=== PATIENT | female | born 1985 | race Caucasian/White ===

== ENCOUNTER → 2016-07-09 | Outpatient (CLI) | payer MEDICAID | LOC: RAD 13:32 | PROVIDERS: ATTEND Family Medicine | DX: M25.511 Pain in right shoulder (principal) ==

== ENCOUNTER → 2016-08-01 | Outpatient (CLI) | payer MEDICAID ==
[2016-08-01 12:43] LABS: ABSOLUTE BASOPHILS # (AUTO) 0.1 10^3/uL (0.0-0.2); ABSOLUTE EOSINOPHILS # (AUTO) 0.6 10^3/uL (0.0-0.6); ABSOLUTE LYMPHOCYTES (AUTO) 3.7 10^3/uL (0.5-4.7); ABSOLUTE MONOCYTES (AUTO) 0.7 10^3/uL (0.1-1.4); BASOPHILS % (AUTO) 0.6 % (0-2); EOSINOPHILS % (AUTO) 6.5 % (0-6); HEMATOCRIT 44.1 % (36.0-47.0); HEMOGLOBIN 14.6 g/dL (12.0-15.5); HGB HCT DIFFERENCE -0.3; LYMPHOCYTES % (AUTO) 40.7 % (13-45); MEAN CORPUSCULAR HEMOGLOBIN 30.3 pg (27.0-33.4); MEAN CORPUSCULAR HGB CONC 33.2 g/dL (32.0-36.0); MEAN CORPUSCULAR VOLUME 91 fl (80-97); MONOCYTES % (AUTO) 7.8 % (3-13); RED BLOOD COUNT 4.83 10^6/uL (3.72-5.28); SEGMENTED NEUTROPHILS % (AUTO) 44.4 % (42-78)
[2016-08-01 13:17] LABS: ERYTHROCYTE SEDIMENTATION RATE 9 mm/hr (0-20)
[2016-08-03 08:52] LABS: CYCLIC CITRUL PEPTIDE IGG/A AB 6 units (0-19)
== END ==
LOC: OD 11:08
PROVIDERS: ATTEND Family Medicine
DX: M25.511 Pain in right shoulder (principal)
CPT/HCPCS: 36415; 85025; 85652; 86038; 86140; 86200; 86430; 86812

== ENCOUNTER 2016-09-05 11:18 | Emergency (ER) | payer MEDICAID ==
--- NOTE | 2016-09-05 11:24 | ER Document Report ---
ED Medical Screen (RME) - General Stated Complaint: TOOTH PAIN Notes: 30 yo female c/o right lower dental pain x 3 days. unable to see dentist until next week. no fever TRAVEL OUTSIDE OF THE [place] IN LAST 30 DAYS: No - Related Data Allergies/Adverse Reactions: Sulfa (Sulfonamide Antibiotics) Allergy (Severe, Verified 05/13/16 16:22) hives, can't breathe hydrocodone bitartrate [From Vicodin] Adverse Reaction (Mild, Verified 05/13/16 16:22) VOMITING Past Medical History - Social History Family history: Reviewed & Not Pertinent Pulmonary Medical History: Reports: Hx Asthma Neurological Medical History: Reports: Hx Migraine, Hx Seizures - x1 grandmal 4 yrs ago R/T migraine meds combo Renal/ Medical History: Reports: Hx Ovarian Cysts Malignancy Medical History: Reports: Hx Cervical Cancer Musculoskeltal Medical History: Denies Hx Arthritis, Reports Hx Musculoskeletal Trauma Skin Medical History: Reports Hx Cellulitis, Reports Hx MRSA Traumatic Medical History: Reports: Hx Fractures - left arm and left foot Infectious Medical History: Reports: Hx MRSA Past Surgical History: Reports: Hx Gynecologic Surgery - cone biopsy,2008, Hx Oral Surgery, Hx Tubal Ligation - Immunizations Immunizations up to date: Yes Hx Diphtheria, Pertussis, Tetanus Vaccination: Yes - 03/31/13 Physical Exam - Vital signs Vitals: Temp Pulse Resp BP Pulse Ox 97.7 F 84 16 129/83 H 100 09/05/16 11:22 09/05/16 11:22 09/05/16 11:22 09/05/16 11:22 09/05/16 11:22 Course - Vital Signs Vital signs: Temp Pulse Resp BP Pulse Ox 97.7 F 84 16 129/83 H 100 09/05/16 11:22 09/05/16 11:22 09/05/16 11:22 09/05/16 11:22 09/05/16 11:22
--- NOTE | 2016-09-05 13:08 | ER Document Report ---
ED Oral Problem - General Chief Complaint: Toothache Stated Complaint: TOOTH PAIN Notes: Patient is complaining of pain in the lower posterior most teeth on the right for about 3 days. She says she is unable to get an appointment to see a dentist until next Saturday. No fevers. Only minimal soft tissue swelling present. TRAVEL OUTSIDE OF THE [place] IN LAST 30 DAYS: No - Related Data Allergies/Adverse Reactions: Sulfa (Sulfonamide Antibiotics) Allergy (Severe, Verified 09/05/16 11:24) hives, can't breathe hydrocodone bitartrate [From Vicodin] Adverse Reaction (Mild, Verified 09/05/16 11:24) VOMITING Home Medications: Current Home Medications Eletriptan HBr [Relpax] 20 mg PO 09/05/16 [History] Past Medical History - Social History Smoking Status: Current Every Day Smoker Chew tobacco use (# tins/day): No Frequency of alcohol use: None Drug Abuse: None Family History: Arthritis, CAD, CVA, Hyperlipidemia, Hypertension, Malignancy Patient has suicidal ideation: No Patient has homicidal ideation: No Pulmonary Medical History: Reports: Hx Asthma Neurological Medical History: Reports: Hx Migraine, Hx Seizures - x1 grandmal 4 yrs ago R/T migraine meds combo Renal/ Medical History: Reports: Hx Ovarian Cysts. Denies: Hx Peritoneal Dialysis Malignancy Medical History: Reports: Hx Cervical Cancer Musculoskeltal Medical History: Denies Hx Arthritis, Reports Hx Musculoskeletal Trauma Skin Medical History: Reports Hx Cellulitis, Reports Hx MRSA Traumatic Medical History: Reports: Hx Fractures - left arm and left foot Infectious Medical History: Reports: Hx MRSA Past Surgical History: Reports: Hx Gynecologic Surgery - cone biopsy,2008, Hx Oral Surgery, Hx Tubal Ligation - Immunizations Immunizations up to date: Yes Hx Diphtheria, Pertussis, Tetanus Vaccination: Yes - 03/31/13 Hx Pneumococcal Vaccination: 03/01/13 Review of Systems - Review of Systems Constitutional: denies: Fever EENT: Mouth pain, Dental problem. denies: Throat pain, Difficulty swallowing, Throat swelling, Mouth swelling Physical Exam - Vital signs Vitals: Temp Pulse Resp BP Pulse Ox 97.7 F 84 16 129/83 H 100 09/05/16 11:22 09/05/16 11:22 09/05/16 11:22 09/05/16 11:22 09/05/16 11:22 Interpretation: Normal - Notes Notes: PHYSICAL EXAMINATION: GENERAL: Well-appearing, in no acute distress. Vital signs are normal. Afebrile. HEAD: Atraumatic, normocephalic. EYES: Pupils equal round and reactive to light, extraocular movements intact. ENT: oropharynx clear without exudates. Moist mucous membranes. Patient appears to have an impacted posterior wisdom tooth on the right lower jaw. The adjacent gingiva is soft and tender without any fluctuance present. NECK: Normal range of motion, supple. Course - Vital Signs Vital signs: Temp Pulse Resp BP Pulse Ox 97.8 F 73 18 119/89 H 99 09/05/16 13:13 09/05/16 13:13 09/05/16 13:13 09/05/16 13:13 09/05/16 13:13 Discharge - Discharge Clinical Impression: Chronic dental pain, Impacted tooth Condition: Stable Disposition: HOME, SELF-CARE Additional Instructions: TOOTHACHE: Your pain is due to dental decay. The tooth must be repaired in order for you to feel better. You will, therefore, be referred to a dentist. We do not have dentists on the staff at [facility]. Severe swelling or drainage around a tooth usually means a dental abscess. This also requires evaluation and treatment by the dentist, but antibiotics may be prescribed while awaiting dental treatment. You should be rechecked immediately if you develop major swelling of the face, increasing pain, a lump in the jaw or gums, headache, difficulty swallowing, or fever. It appears that you have an impacted wisdom tooth. ORAL NARCOTIC MEDICATION: You have been given a prescription for pain control. This medication is a narcotic. It's best taken with food, as nausea can result if taken on an empty stomach. Don't operate machinery or drive within six hours of taking this medication. Do not combine this medicine with alcohol, or with any medication which can cause sedation (such as cold tablets or sleeping pills) unless you get permission from the physician. Narcotics tend to cause constipation. If possible, drink plenty of fluids and eat a diet high in fiber and fruits. PENICILLIN V K: You have been given a prescription for Penicillin VK. Your physician has determined that this is the best antibiotic for your condition. Pen VK can be taken with meals, however more of the antibiotic gets into the bloodstream if it's taken on an empty stomach. Penicillin usually has no side effects. However, allergy to penicillins is common. If you have had an allergic reaction to any drug of the penicillin family, you should never take any other penicillin. Notify your doctor at once if you develop hives, itching, swelling, faintness, or shortness of breath. Antinausea Medication You have been given a medication to suppress nausea and vomiting. This type of medication can be given as a shot, pill, or suppository. It will usually last for many hours. Pills and shots usually last six to eight hours, suppositories last about 12 hours. For the typical illness, only one or two doses of the medication may be necessary. Mild lightheadedness may occur. This type of medicine can cause drowsiness. Do not drive or operate dangerous machinery while under its influence. Do not mix with alcohol. See your doctor at once if you have muscle spasms or tightness, or uncontrollable motions (particularly of the neck, mouth, or jaw). Persistent vomiting or severe lightheadedness should also be evaluated by the physician. FOLLOW-UP CARE: You have been referred for follow-up care to the dentists listed below. Call the dentists office for an appointment as you were instructed or within the next two days. If you experience worsening or a significant change in your symptoms, notify the physician immediately or return to the Emergency Department at any time for re-evaluation. Prescriptions: Promethazine HCl [Phenergan 25 mg Tablet] 1 - 2 tab PO Q6HP PRN #15 tablet PRN Reason: Oxycodone HCl/Acetaminophen [Percocet 5-325 mg Tablet] 1 - 2 tab PO Q4H PRN #15 tablet PRN Reason: Penicillin V Potassium [Penicillin Vk 500 mg Tablet] 500 mg PO TID #20 tablet
[2016-09-05 13:14] VITALS: BP 119/89
== END 2016-09-05 13:14 | disposition home or self-care (01) ==
LOC: ER 11:18
DX: K01.1 Impacted teeth (principal); K08.9 Disorder of teeth and supporting structures, unspecified; F17.200 Nicotine dependence, unspecified, uncomplicated; J45.909 Unspecified asthma, uncomplicated; Z86.14 Personal history of Methicillin resistant Staphylococcus aureus infection; Z88.2 Allergy status to sulfonamides; Z88.6 Allergy status to analgesic agent; Z98.51 Tubal ligation status
CPT/HCPCS: 99282

== ENCOUNTER 2016-11-05 15:46 | Emergency (ER) | payer MEDICAID ==
--- NOTE | 2016-11-05 16:04 | ER Document Report ---
ED Medical Screen (RME) - General Chief Complaint: Abdominal Pain Stated Complaint: BACK PAIN Time Seen by Provider: 11/05/16 15:59 TRAVEL OUTSIDE OF THE [place] IN LAST 30 DAYS: No - HPI Notes: 11/05/16 16:03 Right side abdominal pain onset this morning last menstrual cycle 2 weeks ago states nausea no vomiting no diarrhea no fever trauma - Related Data Allergies/Adverse Reactions: Sulfa (Sulfonamide Antibiotics) Allergy (Severe, Verified 11/05/16 15:56) hives, can't breathe hydrocodone bitartrate [From Vicodin] Adverse Reaction (Mild, Verified 11/05/16 15:56) VOMITING Past Medical History - Social History Family history: Reviewed & Not Pertinent Pulmonary Medical History: Reports: Hx Asthma Neurological Medical History: Reports: Hx Migraine, Hx Seizures - x1 grandmal 4 yrs ago R/T migraine meds combo Renal/ Medical History: Reports: Hx Ovarian Cysts. Denies: Hx Peritoneal Dialysis Malignancy Medical History: Reports: Hx Cervical Cancer Musculoskeltal Medical History: Denies Hx Arthritis, Reports Hx Musculoskeletal Trauma Skin Medical History: Reports Hx Cellulitis, Reports Hx MRSA Traumatic Medical History: Reports: Hx Fractures - left arm and left foot Infectious Medical History: Reports: Hx MRSA Past Surgical History: Reports: Hx Gynecologic Surgery - cone biopsy,2008, Hx Oral Surgery, Hx Tubal Ligation - Immunizations Immunizations up to date: Yes Hx Diphtheria, Pertussis, Tetanus Vaccination: Yes - 03/31/13 Review of Systems - Review of Systems Gastrointestinal: Abdominal pain Physical Exam - Vital signs Vitals: Temp Pulse Resp BP Pulse Ox 98.5 F 113 H 16 134/87 H 99 11/05/16 15:57 11/05/16 15:57 11/05/16 15:57 11/05/16 15:57 11/05/16 15:57 - Cardiovascular Rhythm: Regular Heart sounds: Normal auscultation Course - Re-evaluation Re-evalutation: 11/05/16 16:04 I have greeted and performed a rapid initial assessment of this patient. A comprehensive ED assessment and evaluation of the patient, analysis of test results and completion of the medical decision making process will be conducted by additional ED providers. - Vital Signs Vital signs: Temp Pulse Resp BP Pulse Ox 98.5 F 113 H 16 134/87 H 99 11/05/16 15:57 11/05/16 15:57 11/05/16 15:57 11/05/16 15:57 11/05/16 15:57
[2016-11-05 16:17] LABS: ABSOLUTE BASOPHILS # (AUTO) 0.1 10^3/uL (0.0-0.2); ABSOLUTE EOSINOPHILS # (AUTO) 0.2 10^3/uL (0.0-0.6); ABSOLUTE LYMPHOCYTES (AUTO) 3.2 10^3/uL (0.5-4.7); ABSOLUTE MONOCYTES (AUTO) 1.1 10^3/uL (0.1-1.4); BASOPHILS % (AUTO) 0.8 % (0-2); EOSINOPHILS % (AUTO) 1.1 % (0-6); HEMATOCRIT 42.9 % (36.0-47.0); HEMOGLOBIN 14.5 g/dL (12.0-15.5); HGB HCT DIFFERENCE 0.6; LYMPHOCYTES % (AUTO) 21.9 % (13-45); MEAN CORPUSCULAR HEMOGLOBIN 30.4 pg (27.0-33.4); MEAN CORPUSCULAR HGB CONC 33.7 g/dL (32.0-36.0); MEAN CORPUSCULAR VOLUME 90 fl (80-97); MONOCYTES % (AUTO) 7.8 % (3-13); RED BLOOD COUNT 4.76 10^6/uL (3.72-5.28); RED CELL DISTRIBUTION WIDTH 13.5 % (11.5-14.0); SEGMENTED NEUTROPHILS % (AUTO) 68.4 % (42-78); WHITE BLOOD COUNT 14.6 10^3/uL (4.0-10.5)
[2016-11-05 16:25] LABS: APPEARANCE,URINE CLOUDY; BILIRUBIN,URINE NEGATIVE (NEGATIVE); GLUCOSE, URINE NEGATIVE (NEGATIVE); KETONES,URINE NEGATIVE (NEGATIVE); LEUKOCYTE ESTERASE,URINE LARGE (NEGATIVE); NITRITE,URINE POSITIVE (NEGATIVE); PROTEIN,URINE 100 mg/dL (NEGATIVE); URINE SPECIFIC GRAVITY 1.014; UROBILINOGEN,URINE NEGATIVE mg/dL (<2.0)
[2016-11-05] MEDS ORDERED: CEFTRIAXONE 1 GM/D5W RTU 50 ML IV ONE (16:39)
[2016-11-05 16:43] LABS: ALANINE AMINOTRANSFERASE 25 U/L (9-52); ALBUMIN 4.2 g/dL (3.5-5.0); ALKALINE PHOSPHATASE 76 U/L (38-126); ANION GAP 11 (5-19); ASPARTATE AMINO TRANSFERASE 16 U/L (14-36); BILIRUBIN,DIRECT 0.3 mg/dL (0.0-0.4); BILIRUBIN,TOTAL 0.5 mg/dL (0.2-1.3); BLOOD UREA NITROGEN 8 mg/dL (7-20); CALCIUM 9.9 mg/dL (8.4-10.2); CARBON DIOXIDE 26 mmol/L (22-30); CHLORIDE 107 mmol/L (98-107); CREATININE RESULT 0.73 mg/dL (0.52-1.25); GLUCOSE 94 mg/dL (75-110); LIPASE 89.5 U/L (23-300); POTASSIUM 3.9 mmol/L (3.6-5.0); SODIUM 144.3 mmol/L (137-145)
[2016-11-05 16:49] LABS: URINE BARBITURATES SCREEN NEGATIVE; URINE METHADONE SCREEN NEGATIVE; URINE OPIATES LOW NEGATIVE; URINE PHENCYCLIDINE SCREEN NEGATIVE
[2016-11-05] MEDS ORDERED: MORPHINE SULFATE 10 MG/ML INJ IV PRN (17:08)
[2016-11-05] MEDS ORDERED: ONDANSETRON HCL INJ/PF 4 MG/2 ML SDV IV ONE (17:08)
[2016-11-05] MEDS: NORMAL SALINE 1000 ML 1,000 ML IV PRN ×2 (18:04→19:00)
[2016-11-05] MEDS ORDERED: HYDROMORPHONE HCL INJ/PF 2 MG/ML AMPULE IV ONE ×2 (18:52→20:39)
[2016-11-05] MEDS ORDERED: KETOROLAC TROMETHAMINE INJ/PF 30 MG/1 ML SDV IV ONE (18:52)
[2016-11-05] MEDS ORDERED: TAMSULOSIN HCL 0.4 MG CAP.SR.24H PO ONE (18:52)
--- NOTE | 2016-11-05 18:57 | ER Document Report ---
ED General - General Chief Complaint: Abdominal Pain Stated Complaint: BACK PAIN Time Seen by Provider: 11/05/16 15:59 Mode of Arrival: Ambulatory Information source: Patient Notes: This is a 30-year-old female that presents to the emergency room with right flank and lower abdominal pain for one day. Patient denies fever, chills. She has had nausea without vomiting. She denies vaginal discharge. The patient denies diarrhea. TRAVEL OUTSIDE OF THE [place] IN LAST 30 DAYS: No - HPI Onset: Yesterday Onset/Duration: Gradual Quality of pain: Dull, Sharp Severity: Moderate Pain Level: 4 Associated symptoms: Nausea. denies: Chills, Diarrhea, Fever, Vomiting Exacerbated by: Denies Relieved by: Denies Similar symptoms previously: No Recently seen / treated by doctor: No - Related Data Allergies/Adverse Reactions: Sulfa (Sulfonamide Antibiotics) Allergy (Severe, Verified 11/05/16 15:56) hives, can't breathe hydrocodone bitartrate [From Vicodin] Adverse Reaction (Mild, Verified 11/05/16 15:56) VOMITING Past Medical History - General Information source: Patient - Social History Smoking Status: Never Smoker Cigarette use (# per day): No Chew tobacco use (# tins/day): No Frequency of alcohol use: None Drug Abuse: None Lives with: Family Family History: Arthritis, CAD, CVA, Hyperlipidemia, Hypertension, Malignancy Patient has suicidal ideation: No Patient has homicidal ideation: No Pulmonary Medical History: Reports: Hx Asthma Neurological Medical History: Reports: Hx Migraine, Hx Seizures - x1 grandmal 4 yrs ago R/T migraine meds combo Renal/ Medical History: Reports: Hx Ovarian Cysts. Denies: Hx Peritoneal Dialysis Malignancy Medical History: Reports: Hx Cervical Cancer Musculoskeltal Medical History: Denies Hx Arthritis, Reports Hx Musculoskeletal Trauma Skin Medical History: Reports Hx Cellulitis, Reports Hx MRSA Traumatic Medical History: Reports: Hx Fractures - left arm and left foot Infectious Medical History: Reports: Hx MRSA Past Surgical History: Reports: Hx Gynecologic Surgery - cone biopsy,2008, Hx Oral Surgery, Hx Tubal Ligation - Immunizations Immunizations up to date: Yes Hx Diphtheria, Pertussis, Tetanus Vaccination: Yes - 03/31/13 Hx Pneumococcal Vaccination: 03/01/13 Review of Systems - Review of Systems Constitutional: denies: Chills, Fever EENT: No symptoms reported Cardiovascular: No symptoms reported Respiratory: No symptoms reported Gastrointestinal: See HPI Genitourinary: No symptoms reported Female Genitourinary: No symptoms reported Musculoskeletal: No symptoms reported Skin: No symptoms reported Hematologic/Lymphatic: No symptoms reported Neurological/Psychological: No symptoms reported Physical Exam - Vital signs Vitals: Temp Pulse Resp BP Pulse Ox 98.5 F 113 H 16 134/87 H 99 11/05/16 15:57 11/05/16 15:57 11/05/16 15:57 11/05/16 15:57 11/05/16 15:57 Notes: Physical exam: GENERAL: 30-year-old female, alert and oriented 3, appears in distress HEAD: Atraumatic, normocephalic. EYES: Pupils equal round and reactive to light, extraocular movements intact, sclera anicteric, conjunctiva are normal. ENT: TMs normal, nares patent, oropharynx clear without exudates. Moist mucous membranes. NECK: Normal range of motion, supple without lymphadenopathy or JVD. LUNGS: Breath sounds clear to auscultation bilaterally and equal. No wheezes rales or rhonchi. HEART: Regular rate and rhythm without murmurs, rubs or gallops. ABDOMEN: Soft, normoactive bowel sounds. The patient does have right CVA tenderness and right flank tenderness and right lower quadrant tenderness. No guarding, no rebound. The patient has no tenderness in the lower suprapubic area. No masses appreciated. EXTREMITIES: Normal range of motion, no pitting or edema. No clubbing or cyanosis. NEUROLOGICAL: Cranial nerves II through XII grossly intact. Normal speech, normal gait. PSYCH: Normal mood, normal affect. SKIN: Warm, Dry, normal turgor, no rashes or lesions noted. Course - Re-evaluation Re-evalutation: 11/05/16 18:55 Patient treated with IV fluids, IV morphine, IV Dilaudid, IV Zofran, IV ceftriaxone and oral Flomax. CT of the abdomen reveals a 3 mm stone at the distal UVJ on the right. Patient was given ceftriaxone 2 g IV. 11/05/16 18:56 11/05/16 20:38 Note: I discussed case with Dr. Humphries who recommended patient be transferred to [place] for IV antibiotics and consultation with urology in the morning. I discussed this with the patient and she said it's not possible at this time because she has a special needs child and has to make arrangements. She states she lives 20 minutes from [place] and is willing to go to the emergency room. I did call the emergency room doctor at [place] and explained the situation and gave her heads-up call that the patient may be arriving. I've given the patient a copy of the CT on a CD disc as well as the official CT report, labs and urine analysis. - Vital Signs Vital signs: Temp Pulse Resp BP Pulse Ox 98.5 F 113 H 16 134/87 H 99 11/05/16 15:57 11/05/16 15:57 11/05/16 15:57 11/05/16 15:57 11/05/16 15:57 - Laboratory Result Diagrams: 11/05/16 16:05 11/05/16 16:05 Laboratory results interpreted by me: 11/05/16 11/05/16 11/05/16 16:05 16:05 19:47 WBC 14.6 H Absolute Neutrophils 10.0 H Urine Protein 100 H 30 H Urine Blood LARGE H LARGE H Urine Nitrite POSITIVE H Ur Leukocyte Esterase LARGE H MODERATE H - Diagnostic Test Radiology reviewed: Image reviewed, Reports reviewed - Mild hydronephrosis with right UVJ stone. Discharge - Discharge Clinical Impression: 3 mm left distal ureter stone Urinary tract infection Qualifiers: Urinary tract infection type: acute cystitis Hematuria presence: with hematuria Qualified Code(s): N30.01 - Acute cystitis with hematuria Condition: Stable Disposition: HOME, SELF-CARE Additional Instructions: In the emergency room: CT showed a 3 mm distal left ureter stone The catheter urine showed white cells, red cells and bacteria in the urine You received 2 g of IV ceftriaxone, 2 L of IV fluid, IV morphine, IV Dilaudid, oral Flomax. I discussed the case with Dr. Humphries who is the urologist at [place] and he recommended transfer to [place] for IV fluids and his evaluation in the morning. If going to [place] tonight: Bring a CD copy of your CT with the official report of the study. Bring a copy of the blood tests and the urine tests. A urine culture was sent in vault be available for 2 days I have spoken to the ER doctor and gave her a heads-up call that you may be showing up in the ER. Otherwise, he can always return to the emergency room here if you have any problems: Excessive vomiting, worsening pain or any concerns he getting worse. Prescriptions: Cefixime [Suprax] 400 mg PO DAILY #10 capsule Oxycodone HCl/Acetaminophen [Percocet 5-325 mg Tablet] 1 - 2 tab PO ASDIR PRN # 25 tablet PRN Reason: Tamsulosin HCl [Flomax 0.4 mg Cap.sr] 0.4 mg PO DAILY #7 cap.sr.24h Referrals: FAITH SOLORZANO DO [Primary Care Provider] - Follow up as needed
[2016-11-05 20:00] LABS: AMORPHOUS SEDIMENT,URINE TRACE /HPF; APPEARANCE,URINE SLIGHTLY-CLOUDY; BILIRUBIN,URINE NEGATIVE (NEGATIVE); GLUCOSE, URINE NEGATIVE (NEGATIVE); KETONES,URINE NEGATIVE (NEGATIVE); LEUKOCYTE ESTERASE,URINE MODERATE (NEGATIVE); NITRITE,URINE NEGATIVE (NEGATIVE); PROTEIN,URINE 30 mg/dL (NEGATIVE); URINE SPECIFIC GRAVITY 1.009; UROBILINOGEN,URINE NEGATIVE mg/dL (<2.0)
[2016-11-05] MEDS ORDERED: ONDANSETRON ODT 4 MG TAB (6 TAB/DSPK) PO PRN (20:40)
[2016-11-05 21:30] VITALS: BP 119/78
== END 2016-11-05 21:28 | disposition home or self-care (01) ==
LOC: ER 15:46
DX: N13.2 Hydronephrosis with renal and ureteral calculous obstruction (principal); N30.01 Acute cystitis with hematuria; J45.909 Unspecified asthma, uncomplicated; Z88.2 Allergy status to sulfonamides; Z85.41 Personal history of malignant neoplasm of cervix uteri; Z86.14 Personal history of Methicillin resistant Staphylococcus aureus infection
CPT/HCPCS: 96376; 99284; 96361; 51701; 96375; 96365; 36415; 87086; 84702; 83690; 85025; 80053; 81001; 80307; 76380; J1885; J2270; J1170; J3490; J2405; J7030; J0696

== ENCOUNTER 2016-12-10 13:27 | Emergency (ER) | payer MEDICAID ==
[2016-12-10 13:58] VITALS: BP 126/78
[2016-12-10] MEDS ORDERED: PENICILLIN V POTASSIUM 500 MG TABLET PO ONE (14:29)
[2016-12-10] MEDS ORDERED: IBUPROFEN 800 MG TABLET PO ONE (14:29)
[2016-12-10] MEDS ORDERED: BENZONATATE 100 MG CAPSULE PO ONE (14:30)
--- NOTE | 2016-12-10 14:36 | ER Document Report ---
ED Oral Problem - General Chief Complaint: Toothache Stated Complaint: TOOTH PAIN Time Seen by Provider: 12/10/16 14:20 Mode of Arrival: Ambulatory Information source: Patient Notes: 31-year-old female presents to ED for dental pain on tooth #19 Saturday. This is the only tooth in the bottom left jaw. Minimal swelling to the gums. States she cannot get to the dentist until Saturday. TRAVEL OUTSIDE OF THE [place] IN LAST 30 DAYS: No - HPI Patient complains to provider of: Toothache Onset: Other Onset: Gradual Quality of pain: Throbbing Severity: Severe Pain Level: 5 Associated symptoms: Toothache Worsened by: Cold Relieved by: Nothing Similar symptoms previously: Yes Recently seen / treated by doctor/dentist: No - Related Data Allergies/Adverse Reactions: Sulfa (Sulfonamide Antibiotics) Allergy (Severe, Verified 12/10/16 13:54) hives, can't breathe hydrocodone bitartrate [From Vicodin] Adverse Reaction (Mild, Verified 12/10/16 13:54) VOMITING tramadol Adverse Reaction (Verified 12/10/16 14:27) Past Medical History - General Information source: Patient - Social History Smoking Status: Current Every Day Smoker Cigarette use (# per day): Yes - One half pack per day Chew tobacco use (# tins/day): No Smoking Education Provided: Yes - Less than 2 minutes Frequency of alcohol use: None Drug Abuse: None Occupation: Part-time construction equipment mechanic Lives with: Spouse/Significant other Family History: Arthritis, CAD, CVA, Hyperlipidemia, Hypertension, Malignancy, Thyroid Disfunction. denies: COPD, DM Patient has suicidal ideation: No Patient has homicidal ideation: No - Past Medical History Cardiac Medical History: Reports: None Pulmonary Medical History: Reports: Hx Asthma EENT Medical History: Reports: None Neurological Medical History: Reports: Hx Migraine, Hx Seizures - x1 grandmal 4 yrs ago R/T migraine meds combo Endocrine Medical History: Reports: None Renal/ Medical History: Reports: Hx Ovarian Cysts Malignancy Medical History: Reports: Hx Cervical Cancer GI Medical History: Reports: None Musculoskeltal Medical History: Reports Hx Musculoskeletal Trauma Skin Medical History: Reports Hx Cellulitis, Reports Hx MRSA Psychiatric Medical History: Reports: None Traumatic Medical History: Reports: Hx Fractures - left arm and left foot Infectious Medical History: Reports: Hx MRSA Past Surgical History: Reports: Hx Gynecologic Surgery - cone biopsy,2009, Hx Oral Surgery, Hx Tubal Ligation - Immunizations Immunizations up to date: Yes Hx Diphtheria, Pertussis, Tetanus Vaccination: Yes - 03/31/13 Hx Pneumococcal Vaccination: 03/01/13 Review of Systems - Review of Systems Constitutional: No symptoms reported EENT: Dental problem Cardiovascular: No symptoms reported Respiratory: No symptoms reported Gastrointestinal: No symptoms reported Genitourinary: No symptoms reported Female Genitourinary: No symptoms reported Musculoskeletal: No symptoms reported Skin: No symptoms reported Hematologic/Lymphatic: No symptoms reported Neurological/Psychological: No symptoms reported -: Yes All other systems reviewed and negative Physical Exam - Vital signs Vitals: Temp Pulse Resp BP Pulse Ox 98.2 F 88 16 126/78 H 100 12/10/16 13:57 12/10/16 13:57 12/10/16 13:57 12/10/16 13:57 12/10/16 13:57 Interpretation: Normal - General General appearance: Appears well, Alert - HEENT Head: Normocephalic, Atraumatic Eyes: Normal Pupils: PERRL Ears: Normal External canal: Normal Tympanic membrane: Normal Sinus: Normal Nasal: Normal Mouth/Lips: Caries Mucous membranes: Normal Teeth diagram: 1 - Tenderness and cavity to tooth #19, there are no teeth behind it or and the 2 spaces in front of the tooth Pharynx: Normal Neck: Normal - Respiratory Respiratory status: No respiratory distress Chest status: Nontender Breath sounds: Normal Chest palpation: Normal - Cardiovascular Rhythm: Regular Heart sounds: Normal auscultation Murmur: No - Abdominal Inspection: Normal Distension: No distension Bowel sounds: Normal Tenderness: Nontender Organomegaly: No organomegaly - Back Back: Normal, Nontender - Extremities General upper extremity: Normal inspection, Nontender, Normal color, Normal ROM , Normal temperature General lower extremity: Normal inspection, Nontender, Normal color, Normal ROM , Normal temperature, Normal weight bearing. No: Greg's sign - Neurological Neuro grossly intact: Yes Cognition: Normal Orientation: AAOx4 [place] Coma Scale Eye Opening: Spontaneous [place] Coma Scale Verbal: Oriented [place] Coma Scale Motor: Obeys Commands [place] Coma Scale Total: 15 Speech: Normal Motor strength normal: LUE, RUE, LLE, RLE Sensory: Normal - Psychological Associated symptoms: Normal affect, Normal mood - Skin Skin Temperature: Warm Skin Moisture: Dry Skin Color: Normal Course - Vital Signs Vital signs: Temp Pulse Resp BP Pulse Ox 98.2 F 88 16 126/78 H 100 12/10/16 13:57 12/10/16 13:57 12/10/16 13:57 12/10/16 13:57 12/10/16 13:57 Discharge - Discharge Clinical Impression: Pain due to dental caries Condition: Stable Disposition: HOME, SELF-CARE Instructions: Dentist Additional Instructions: TOOTHACHE: Your pain is due to dental decay. The tooth must be repaired in order for you to feel better. You will, therefore, be referred to a dentist. We do not have dentists on the staff at [facility]. Severe swelling or drainage around a tooth usually means a dental abscess. This also requires evaluation and treatment by the dentist, but antibiotics may be prescribed while awaiting dental treatment. You should be rechecked immediately if you develop major swelling of the face, increasing pain, a lump in the jaw or gums, headache, difficulty swallowing, or fever. PENICILLIN V K: You have been given a prescription for Penicillin VK. Your physician has determined that this is the best antibiotic for your condition. Pen VK can be taken with meals, however more of the antibiotic gets into the bloodstream if it's taken on an empty stomach. Penicillin usually has no side effects. However, allergy to penicillins is common. If you have had an allergic reaction to any drug of the penicillin family, you should never take any other penicillin. Notify your doctor at once if you develop hives, itching, swelling, faintness, or shortness of breath. Tessalon Perles You have received a prescription for Tessalon Perles (benzonatate). This is a non-narcotic medicine for relief of cough. It usually works in about 15- 20 minutes and lasts around four hours. Tessalon Perles should be swallowed. They should not be chewed or dissolved in the mouth (this can produce temporary numbing of the mouth and choking can occur). If you develop any adverse effects such as wheezing, shortness of breath, hives, rash, itching, or lightheadedness, please return at once. FOLLOW-UP CARE: You have been referred for follow-up care to the dentists listed below. Call the dentists office for an appointment as you were instructed or within the next two days. If you experience worsening or a significant change in your symptoms, notify the physician immediately or return to the Emergency Department at any time for re-evaluation. [facility] [address] [place], [place] Saturday mornings, by appointment [facility] [address] [place] [address] [facility] [address] [facility] [address] [facility] [address] [email or web address] [address] [place] [address] Saturday- 8:00am to 5:00 pm Will see [facility] from other [facility]. Charges based on income and family size and accepts Medicare, Medicaid, and Insurances Will pull molars [facility] [address] Hours of Operation 8:00 am - 4:30 pm weekdays The following dental offices accept Medicaid: [facility] Dr. Kess[address] Dr. Berg Dr. Pop Dr. Robins Alden Velásquez Luts[place], and [facility] Dr. Astudillo ([place]) Dr. Epstein (Pamela Ballesteros) [facility] Drs. Reece and Roni (Clio) Dr. Prado (Clio) [facility] Dr. Masterson ([place]) Drs. Conti and (Chloride) Medicaid Care Line Prescriptions: Benzonatate [Tessalon Perle 100 mg Capsule] 100 mg PO Q8HP PRN #14 cap PRN Reason: Ibuprofen 600 mg PO Q8HP PRN #14 tablet PRN Reason: Penicillin V Potassium [Penicillin Vk 500 mg Tablet] 500 mg PO QID #28 tablet Forms: Elevated Blood Pressure, Smoking Cessation Education
== END 2016-12-10 15:05 | disposition home or self-care (01) ==
LOC: ER 13:27
DX: K02.9 Dental caries, unspecified (principal); K08.89 Other specified disorders of teeth and supporting structures; J45.909 Unspecified asthma, uncomplicated; F17.210 Nicotine dependence, cigarettes, uncomplicated; Z71.6 Tobacco abuse counseling; Z86.14 Personal history of Methicillin resistant Staphylococcus aureus infection; Z85.41 Personal history of malignant neoplasm of cervix uteri; Z88.2 Allergy status to sulfonamides
CPT/HCPCS: 99282; J3490 ×3

== ENCOUNTER 2017-01-03 15:49 | Emergency (ER) | payer MEDICAID, OTHER ==
[2017-01-03] MEDS ORDERED: OXYCODONE-ACETAMINOPHEN 5-325 MG TABLET PO ONE (16:45)
[2017-01-03] MEDS ORDERED: ONDANSETRON 4 MG TAB.RAPDIS PO ONE (16:45)
[2017-01-03] MEDS ORDERED: PROMETHAZINE HCL 25 MG TABLET PO ONE (16:45)
--- NOTE | 2017-01-03 16:52 | ER Document Report ---
ED Medical Screen (RME) - General Chief Complaint: Mouth Injury Stated Complaint: FALL MOUTH INJURY Time Seen by Provider: 01/03/17 16:45 Notes: Patient slipped down a ladder hitting her mouth, sustaining a 1 cm laceration to the lower left lip as well as some other intraoral bruises. Patient has good movement of her mandible side to side and when she closes her teeth, everything feels as if it fits together normally. Denies neck pain. Denies any head injury or loss of consciousness. TRAVEL OUTSIDE OF THE [place] IN LAST 30 DAYS: No - Related Data Allergies/Adverse Reactions: Sulfa (Sulfonamide Antibiotics) Allergy (Severe, Verified 01/03/17 16:35) hives, can't breathe hydrocodone bitartrate [From Vicodin] Adverse Reaction (Mild, Verified 01/03/17 16:35) VOMITING tramadol Adverse Reaction (Verified 01/03/17 16:35) Past Medical History - Social History Chew tobacco use (# tins/day): No Frequency of alcohol use: Social Drug Abuse: None Family history: Reviewed & Not Pertinent Pulmonary Medical History: Reports: Hx Asthma Neurological Medical History: Reports: Hx Migraine, Hx Seizures - due to tramadol Renal/ Medical History: Reports: Hx Ovarian Cysts. Denies: Hx Peritoneal Dialysis Malignancy Medical History: Reports: Hx Cervical Cancer Musculoskeltal Medical History: Denies Hx Arthritis, Reports Hx Musculoskeletal Trauma Skin Medical History: Reports Hx Cellulitis, Reports Hx MRSA Traumatic Medical History: Reports: Hx Fractures - left arm and left foot Infectious Medical History: Reports: Hx MRSA Past Surgical History: Reports: Hx Gynecologic Surgery - cone biopsy,2008, Hx Oral Surgery, Hx Tubal Ligation - Immunizations Immunizations up to date: Yes Hx Diphtheria, Pertussis, Tetanus Vaccination: Yes - 03/31/13 Physical Exam - Vital signs Vitals: Temp Pulse Resp BP Pulse Ox 98.3 F 82 16 144/66 H 98 01/03/17 16:11 01/03/17 16:11 01/03/17 16:11 01/03/17 16:11 01/03/17 16:11 Course - Vital Signs Vital signs: Temp Pulse Resp BP Pulse Ox 98.3 F 82 16 144/66 H 98 01/03/17 16:11 01/03/17 16:11 01/03/17 16:11 01/03/17 16:11 01/03/17 16:11
[2017-01-03] MEDS ORDERED: LIDOCAINE 1% INJ-PF (10 MG/ML) 30 ML SDV INJ ONE (19:16)
[2017-01-03] MEDS ORDERED: CLINDAMYCIN HCL 150 MG CAPSULE PO ONE (20:13)
[2017-01-03] MEDS ORDERED: DIPH/PERTUSS(ACELL)/TETANUS VAC/PF 0.5 ML SYR (>=10YO) IM ONE (20:13)
[2017-01-03] MEDS ORDERED: CEPHALEXIN 500 MG CAPSULE PO ONE (20:13)
--- NOTE | 2017-01-03 20:16 | ER Document Report ---
ED Wound - General Chief Complaint: Mouth Injury Stated Complaint: FALL MOUTH INJURY Time Seen by Provider: 01/03/17 16:45 Notes: Patient is a 31-year-old female presents emergency department complaining of lip laceration. Patient states that she was climbing a ladder trying to clean shutters when she slipped and hit her face on the ladder. She denies any loss of consciousness, headache, nausea, vomiting, altered mental status or confusion. Patient states that her tetanus is not up-to-date. She otherwise admits to some soreness in her leg but otherwise walking without any difficulty , limits, gait is stable denies any swelling, bruising, limp TRAVEL OUTSIDE OF THE [place] IN LAST 30 DAYS: No - Related Data Allergies/Adverse Reactions: Sulfa (Sulfonamide Antibiotics) Allergy (Severe, Verified 01/03/17 16:35) hives, can't breathe hydrocodone bitartrate [From Vicodin] Adverse Reaction (Mild, Verified 01/03/17 16:35) VOMITING tramadol Adverse Reaction (Verified 01/03/17 16:35) Past Medical History - Social History Smoking Status: Current Every Day Smoker Chew tobacco use (# tins/day): No Frequency of alcohol use: Social Drug Abuse: None Family History: Arthritis, CAD, CVA, Hyperlipidemia, Hypertension, Malignancy, Thyroid Disfunction. 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 Denies: Hx Peritoneal Dialysis Malignancy Medical History: Reports: Hx Cervical Cancer Musculoskeltal Medical History: Denies Hx Arthritis, Reports Hx Musculoskeletal Trauma Skin Medical History: Reports Hx Cellulitis, Reports Hx MRSA Traumatic Medical History: Reports: Hx Fractures - left arm and left foot Infectious Medical History: Reports: Hx MRSA Past Surgical History: Reports: Hx Gynecologic Surgery - cone biopsy,2008, Hx Oral Surgery, Hx Tubal Ligation - Immunizations Immunizations up to date: Yes Hx Diphtheria, Pertussis, Tetanus Vaccination: Yes - 03/31/13 Hx Pneumococcal Vaccination: 03/01/13 Review of Systems - Review of Systems Skin: See HPI Neurological/Psychological: See HPI -: Yes All other systems reviewed and negative Physical Exam - Vital signs Vitals: Temp Pulse Resp BP Pulse Ox 98.3 F 82 16 144/66 H 98 01/03/17 16:11 01/03/17 16:11 01/03/17 16:11 01/03/17 16:11 01/03/17 16:11 - General General appearance: Appears well, Alert In distress: None - HEENT Head: Normocephalic, Atraumatic. No: Abrasions, Carmichael's sign, Open wounds, [place]'s eyes, Tenderness Eyes: Normal Conjunctiva: Normal Cornea: Normal Extraocular movements intact: Yes Eyelashes: Normal Pupils: PERRL Ears: Normal External canal: Normal Tympanic membrane: Normal Sinus: Normal Nasal: Normal Mouth/Lips: Laceration - left lateral lip lower measuring 1 cm through the lip Mucous membranes: Normal Pharynx: Normal. No: Peritonsillar abscess, Retropharyngeal abscess, Potential airway comprom. Neck: Normal - Respiratory Respiratory status: No respiratory distress Chest status: Nontender Breath sounds: Normal Chest palpation: Normal - Cardiovascular Rhythm: Regular Heart sounds: Normal auscultation, S1 appreciated, S2 appreciated Pulses: Normal: Radial, Dorsalis pedis Normal capillary refill: Yes - Abdominal Inspection: Normal Distension: No distension Bowel sounds: Normal Tenderness: Nontender Organomegaly: No organomegaly - Back Back: Normal, Nontender. No: Deformity/step-off, CVA tenderness, Vertebra tenderness, Wounds - Extremities General upper extremity: Normal inspection, Nontender, Normal color, Normal ROM , Normal strength, Normal temperature. No: Edema General lower extremity: Normal inspection, Nontender, Normal color, Normal ROM , Normal strength, Normal temperature, Normal weight bearing. No: Edema - Neurological Neuro grossly intact: Yes Cognition: Normal Orientation: AAOx4 [place] Coma Scale Eye Opening: Spontaneous [place] Coma Scale Verbal: Oriented [place] Coma Scale Motor: Obeys Commands [place] Coma Scale Total: 15 Speech: Normal Motor strength normal: LUE, RUE, LLE, RLE Additional motor exam normals: Equal protein chemist - Skin Skin irregularity: Laceration - left lateral lower lip Course - Re-evaluation Re-evalutation: 01/03/17 21:56 Patient is a 31-year-old female who is hemodynamic stable, no distress afebrile. Patient does not have any focal neurologic deficits, nuchal rigidity , vital signs are within normal limits no papilledema. Patient is otherwise no acute distress and hemodynamically stable. Low index for suspicion of acute subarachnoid hemorrhage, meningitis or mass. Low suspicion for acute life- threatening etiology with intact neuro exam therefore no additional imaging or laboratory testing is indicated. Will discharge patient home with strict follow -up with PCP for blood pressure check within the next week. Laceration was closed using 6-0 Vicryl patient placed on 2 antibiotics to cover for oral laceration prophylaxis as well as prevent any dental infection. - Vital Signs Vital signs: Temp Pulse Resp BP Pulse Ox 99.0 F 59 L 18 117/78 98 01/03/17 20:41 01/03/17 20:41 01/03/17 20:41 01/03/17 20:41 01/03/17 20:41 Procedures - Laceration/Wound Repair Left Face Wound length (cm): 1 Wound's Depth, Shape: Superficial - lip Laceration pre-procedure: Sterile PPE donned, Chloraprep applied Anesthetic type: 1% Lidocaine Volume Anesthetic (mLs): 1 Wound explored: Clean Wound Repaired With: Sutures Suture Size/Type: 6:0, Vicryl Number of Sutures: 2 Layer Closure?: No Post-procedure NV exam normal: Yes Complications: No Discharge - Discharge Clinical Impression: Lip laceration Qualifiers: Encounter type: initial encounter Qualified Code(s): S01.511A - Laceration without foreign body of lip, initial encounter Condition: Good Disposition: HOME, SELF-CARE Instructions: Oral Laceration, Sutured ([facility]), Tetanus Immunization Given ([facility]) Additional Instructions: Your stitches are dissolvable and will absorb over the next couple of weeks. Please follow-up with your primary care provider and dentist. Prescriptions: Cephalexin Monohydrate [Keflex 500 mg Capsule] 500 mg PO QID #20 capsule Clindamycin HCl 450 mg PO TID 7 Days Oxycodone HCl/Acetaminophen [Percocet 5-325 mg Tablet] 1 - 2 tab PO Q4H PRN #15 tablet PRN Reason: Forms: Elevated Blood Pressure Referrals: TETE CHOW MD [ACTIVE STAFF] - Follow up as needed
[2017-01-03 20:44] VITALS: BP 117/78
== END 2017-01-03 20:52 | disposition home or self-care (01) ==
LOC: ER 15:49
PROC: 0HQ1XZZ Repair Face Skin, External Approach (ICD-10-PCS; principal; 2017-01-03)
DX: S01.511A Laceration without foreign body of lip, initial encounter (principal); W11.XXXA Fall on and from ladder, initial encounter; F17.200 Nicotine dependence, unspecified, uncomplicated
CPT/HCPCS: 99282; 12011; J3490 ×3; S0119

== ENCOUNTER 2017-12-18 10:49 | Emergency (ER) | payer MEDICAID ==
[2017-12-18 10:55] VITALS: BP 146/88
--- NOTE | 2017-12-18 11:09 | ER Document Report ---
HPI - HPI Patient complains to provider of: Dental pain Pain Level: 5 Context: Patient is a 32-year-old female complaining of pain to her tooth #20. Patient reports that she had a fork in her mouth yesterday morning when her puppy jumped up and hit the fork which hit her tooth which chipped the tooth at the gumline. Patient reports that she has a dental appointment on Saturday, 4 days from now Exacerbated by: Denies Relieved by: Denies Similar symptoms previously: No Recently seen / treated by doctor: No - ROS Systems Reviewed and Negative: Yes All other systems reviewed and negative - REPRODUCTIVE Reproductive: DENIES: : Past Medical History - General Information source: Patient - Social History Smoking Status: Current Every Day Smoker Frequency of alcohol use: None Drug Abuse: None Lives with: Family Family History: Arthritis, CAD, CVA, Hyperlipidemia, Hypertension, Malignancy, Thyroid Disfunction. denies: COPD, DM Pulmonary Medical History: Reports: Hx Asthma Neurological Medical History: Reports: Hx Migraine, Hx Seizures - due to tramadol Renal/ Medical History: Reports: Hx Ovarian Cysts. Denies: Hx Peritoneal Dialysis Malignancy Medical History: Reports: Hx Cervical Cancer Musculoskeltal Medical History: Denies Hx Arthritis, Reports Hx Musculoskeletal Trauma Skin Medical History: Reports Hx Cellulitis, Reports Hx MRSA Traumatic Medical History: Reports: Hx Fractures - left arm and left foot Infectious Medical History: Reports: Hx MRSA Past Surgical History: Reports: Hx Gynecologic Surgery - cone biopsy,2008, Hx Oral Surgery, Hx Tubal Ligation - Immunizations Immunizations up to date: Yes Hx Diphtheria, Pertussis, Tetanus Vaccination: Yes - 03/31/13 Hx Pneumococcal Vaccination: 03/01/13 Vertical Provider Document - CONSTITUTIONAL Agree With Documented VS: Yes Exam Limitations: No Limitations - INFECTION CONTROL TRAVEL OUTSIDE OF THE [place] IN LAST 30 DAYS: No - HEENT HEENT: Atraumatic, PERRLA Mouth Diagram: 1 - chipped enamel at gum line - NECK Neck: Supple - MUSCULOSKELETAL/EXTREMETIES Musculoskeletal/Extremeties: MAEW - NEURO Level of Consciousness: Awake, Alert, Appropriate - DERM Integumentary: Warm, Dry Course - Re-evaluation Re-evalutation: 12/18/17 11:07 History and physical are consistent with an uncomplicated dental pain. There is injury to tooth #21. No gingival edema or abscess appreciated at this time but will cover with antibiotics prophylactically. Patient has dental appointment in 4 days. - Vital Signs Vital signs: Temp Pulse Resp BP Pulse Ox 98.8 F 88 16 146/88 H 99 12/18/17 10:53 12/18/17 10:53 12/18/17 10:53 12/18/17 10:53 12/18/17 10:53 Discharge - Discharge Clinical Impression: Pain, dental Condition: Stable Disposition: HOME, SELF-CARE Instructions: Penicillin V K ([facility]), Toothache ([facility]) Additional Instructions: Take antibiotics as prescribed to prevent dental infection Recommend temporary filling to repair enamel damage or you wait for your dental appointment Ibuprofen for discomfort Follow-up with your dentist as scheduled Prescriptions: Ibuprofen [Motrin 800 Mg Tablet] 800 mg PO Q6H #20 tablet Penicillin V Potassium [Penicillin Vk 500 mg Tablet] 500 mg PO BID #20 tablet
== END 2017-12-18 11:16 | disposition home or self-care (01) ==
LOC: ER 10:49
DX: S09.8XXA Other specified injuries of head, initial encounter (principal); K08.89 Other specified disorders of teeth and supporting structures; W20.8XXA Other cause of strike by thrown, projected or falling object, initial encounter; J45.909 Unspecified asthma, uncomplicated; F17.200 Nicotine dependence, unspecified, uncomplicated; Z85.41 Personal history of malignant neoplasm of cervix uteri
CPT/HCPCS: 99282

== ENCOUNTER 2018-06-06 09:02 | Emergency (ER) | payer MEDICAID ==
[2018-06-06 09:21] VITALS: BP 126/85
[2018-06-06] MEDS ORDERED: PENICILLIN V POTASSIUM 500 MG TABLET PO ONE (09:44)
[2018-06-06] MEDS ORDERED: OXYCODONE-ACETAMINOPHEN 5-325 MG TABLET PO ONE (09:44)
--- NOTE | 2018-06-06 09:46 | ER Document Report ---
HPI - HPI Patient complains to provider of: Dental pain Time Seen by Provider: 06/06/18 09:31 Onset: Yesterday Onset/Duration: Gradual Quality of pain: Achy Pain Level: 5 Context: Patient presents complaining of dental pain that started yesterday. Patient denies any fever or facial swelling. Patient does complain of some mild nausea. Associated Symptoms: Nausea, Other - Dental pain. denies: Fever, Vomiting Exacerbated by: Denies Relieved by: Denies Similar symptoms previously: Yes Recently seen / treated by doctor: No - ROS ROS below otherwise negative: Yes Systems Reviewed and Negative: Yes All other systems reviewed and negative - CONSTITUTIONAL Constitutional: DENIES: Fever, Chills - NEURO Neurology: DENIES: Headache - RESPIRATORY Respiratory: DENIES: Trouble Breathing, Coughing - GASTROINTESTINAL Gastrointestinal: REPORTS: Nausea. DENIES: Abdominal Pain, Patient vomiting - REPRODUCTIVE Reproductive: DENIES: : - MUSCULOSKELETAL Musculoskeletal: DENIES: Extremity pain - DERM Skin Color: Normal Skin Problems: None Past Medical History - General Information source: Patient - Social History Smoking Status: Current Every Day Smoker Smoking Education Provided: Yes Frequency of alcohol use: None Drug Abuse: None Occupation: None Family History: Arthritis, CAD, CVA, Hyperlipidemia, Hypertension, Malignancy, Thyroid Disfunction. 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 Denies: Hx Peritoneal Dialysis Malignancy Medical History: Reports: Hx Cervical Cancer Musculoskeletal Medical History: Denies Hx Arthritis, Reports Hx Musculoskeletal Trauma Skin Medical History: Reports Hx Cellulitis, Reports Hx MRSA Traumatic Medical History: Reports: Hx Fractures - left arm and left foot Infectious Medical History: Reports: Hx MRSA Past Surgical History: Reports: Hx Gynecologic Surgery - cone biopsy,2009, Hx Oral Surgery, Hx Tubal Ligation - Immunizations Immunizations up to date: Yes Hx Diphtheria, Pertussis, Tetanus Vaccination: Yes - 03/31/13 Hx Pneumococcal Vaccination: 03/01/13 Vertical Provider Document - CONSTITUTIONAL Agree With Documented VS: Yes Exam Limitations: No Limitations General Appearance: WD/WN, No Apparent Distress - INFECTION CONTROL TRAVEL OUTSIDE OF THE [place] IN LAST 30 DAYS: No - HEENT HEENT: Atraumatic, Normocephalic Mouth Diagram: 1 - Dental decay, tenderness, no abscess, no sublingual or submental swelling - NECK Neck: Normal Inspection, Supple. negative: Lymphadenopathy-Left, Lymphadenopathy-Right - RESPIRATORY Respiratory: Breath Sounds Normal, No Respiratory Distress - CARDIOVASCULAR Cardiovascular: Regular Rate, Regular Rhythm - MUSCULOSKELETAL/EXTREMETIES Musculoskeletal/Extremeties: MAEW - NEURO Level of Consciousness: Awake, Alert, Appropriate Motor/Sensory: No Motor Deficit - DERM Integumentary: Warm, Dry, No Rash Course - Vital Signs Vital signs: Temp Pulse Resp BP Pulse Ox 98.5 F 70 18 126/85 H 100 06/06/18 09:16 06/06/18 09:16 06/06/18 09:16 06/06/18 09:16 06/06/18 09:16 Discharge - Discharge Clinical Impression: Toothache Condition: Stable Disposition: HOME, SELF-CARE Instructions: Penicillin V K ([facility]), Toothache ([facility]) Additional Instructions: Return immediately for any new or worsening symptoms Followup with your primary care provider, call tomorrow to make a followup appointment Follow-up with your dental care provider as planned Prescriptions: Naproxen [Naprosyn 250 Nmg Tablet] 1 tab PO BID #14 tablet Penicillin V Potassium [Penicillin Vk 500 mg Tablet] 500 mg PO BID #20 tablet Forms: Smoking Cessation Education Referrals: TREY MEYER MD [ACTIVE STAFF] - Follow up as needed
== END 2018-06-06 10:00 | disposition home or self-care (01) ==
LOC: ER 09:02
DX: K08.89 Other specified disorders of teeth and supporting structures (principal); R11.0 Nausea; F17.200 Nicotine dependence, unspecified, uncomplicated; J45.909 Unspecified asthma, uncomplicated
CPT/HCPCS: 99283; J3490

== ENCOUNTER 2018-09-03 16:27 | Emergency (ER) | payer MEDICAID ==
[2018-09-03] MEDS ORDERED: HYDROCODONE/ACETAMINOPHEN 5-325 MG (6 TAB/ER DISP) PO PRN (18:22)
[2018-09-03] MEDS ORDERED: CLINDAMYCIN HCL 150 MG CAPSULE PO ONE (18:22)
--- NOTE | 2018-09-03 18:30 | ER Document Report ---
HPI - HPI Time Seen by Provider: 09/03/18 18:06 Pain Level: 5 Notes: Patient is a 32-year-old female who presents with possible abscess to her posterior neck. Patient reports this is been there for a couple of days. Denies any drainage from the area. Denies any fevers or body aches. Denies history of MRSA. - CONSTITUTIONAL Constitutional: DENIES: Fever, Chills - EENT EENT: DENIES: Sore Throat, Ear Pain, Eye problems - NEURO Neurology: DENIES: Headache, Weakness, Vision blurred, Dizzinesss / Vertigo - CARDIOVASCULAR Cardiovascular: DENIES: Chest pain - RESPIRATORY Respiratory: DENIES: Trouble Breathing, Coughing - GASTROINTESTINAL Gastrointestinal: DENIES: Abdominal Pain, Black / Bloody Stools - URINARY Urinary: DENIES: Dysuria, Urgency, Frequency - REPRODUCTIVE Reproductive: DENIES: : - MUSCULOSKELETAL Musculoskeletal: DENIES: Extremity pain Past Medical History - Social History Smoking Status: Current Every Day Smoker Family History: Arthritis, CAD, CVA, Hyperlipidemia, Hypertension, Malignancy, Thyroid Disfunction. 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 Denies: Hx Peritoneal Dialysis Malignancy Medical History: Reports: Hx Cervical Cancer Musculoskeletal Medical History: Denies Hx Arthritis, Reports Hx Musculoskeletal Trauma Skin Medical History: Reports Hx Cellulitis, Reports Hx MRSA Traumatic Medical History: Reports: Hx Fractures - left arm and left foot Infectious Medical History: Reports: Hx MRSA Past Surgical History: Reports: Hx Gynecologic Surgery - cone biopsy,2008, Hx Oral Surgery, Hx Tubal Ligation - Immunizations Immunizations up to date: Yes Hx Diphtheria, Pertussis, Tetanus Vaccination: Yes - 03/31/13 Hx Pneumococcal Vaccination: 03/01/13 Vertical Provider Document - CONSTITUTIONAL Notes: PHYSICAL EXAMINATION: GENERAL: Well-appearing, well-nourished and in no acute distress. HEAD: Atraumatic, normocephalic. EYES: Pupils equal round extraocular movements intact, conjunctiva are normal. ENT: Nares patent NECK: Normal range of motion LUNGS: No respiratory distress Musculoskeletal: Normal range of motion NEUROLOGICAL: Normal speech, normal gait. PSYCH: Normal mood, normal affect. SKIN: Warm, Dry, normal turgor, no rashes or lesions noted. Small area of erythema with induration without fluctuance noted to left posterior neck. - INFECTION CONTROL TRAVEL OUTSIDE OF THE [place] IN LAST 30 DAYS: No Course - Re-evaluation Re-evalutation: Possible abscess noted to patient's posterior neck, there is a small amount of induration but no fluctuance. This was discussed with the patient. Will place patient on oral antibiotics and have patient apply warm compresses to the area at least 3-4 times daily. I did discuss with the patient that it is possible that she will need to return to have the area lanced at this time since there is no area of fluctuance it would be inappropriate to incise and drain it. Strict ED return precautions were discussed. - Vital Signs Vital signs: Temp Pulse Resp BP Pulse Ox 99.6 F 90 20 125/64 100 09/03/18 16:38 09/03/18 16:38 09/03/18 16:38 09/03/18 16:38 09/03/18 16:38 Discharge - Discharge Clinical Impression: Abscess Condition: Stable Disposition: HOME, SELF-CARE Additional Instructions: Abscess You have an abscess (boil). This a pus-forming infection, usually due to staph. Some boils may be left to drain on their own, but most require lancing. From the time the tender lump first appears, it may be three or four days before the abscess is ready to [place]. Local heat and rest help at this stage of treatment. An antibiotic may prevent spread of the infection. Once the abscess is opened, packing may be placed into it. This is done so pus is not sealed inside by premature closure of the cavity. The packing will be removed at your follow-up visit or you may be advised to remove it yourself at home. Sometimes this packing must be replaced a few times during healing. The wound will heal with surprisingly little scar. Depending on the size and location of an abscess, healing can take one to four weeks. You may shower and wash the area around the incision site two or three times a day. Antibiotics may be prescribed, but are usually not necessary after an abscess has been drained. If you develop fever, chilling, worsening pain, or increasing swelling in the area, call the doctor or return immediately. Your abscess will most likely open up if you apply warm compresses to the area 3-4 times daily. Please take the antibiotics as prescribed, use the pain medication only for severe pain, you take ibuprofen 600 mg every 6 hours. Do not squeeze the area, allow it to drain on its own. Return to the emergency department if your symptoms worsen, you develop fever the redness or swelling spreads or you develop red streaks from the area. Prescriptions: Clindamycin HCl 300 mg PO TID #30 capsule
[2018-09-03 18:31] VITALS: BP 137/86
== END 2018-09-03 18:40 | disposition home or self-care (01) ==
LOC: ER 16:27
DX: L02.91 Cutaneous abscess, unspecified (principal); F17.200 Nicotine dependence, unspecified, uncomplicated; J45.909 Unspecified asthma, uncomplicated; Z86.14 Personal history of Methicillin resistant Staphylococcus aureus infection; Z85.41 Personal history of malignant neoplasm of cervix uteri
CPT/HCPCS: 99283; J3490

== ENCOUNTER 2018-09-07 14:21 | Emergency (ER) | payer MEDICAID ==
--- NOTE | 2018-09-07 14:54 | ER Document Report ---
ED Medical Screen (RME) - General Chief Complaint: Skin Problem Stated Complaint: RASH Time Seen by Provider: 09/07/18 14:53 Mode of Arrival: Ambulatory Information source: Patient TRAVEL OUTSIDE OF THE [place] IN LAST 30 DAYS: No - HPI Patient complains to provider of: rash Onset: Last week - pt with h/o MRSA with outbreak on neck that is spreading to shoulder and back - Related Data Allergies/Adverse Reactions: Sulfa (Sulfonamide Antibiotics) Allergy (Severe, Verified 09/03/18 16:29) hives, can't breathe hydrocodone bitartrate [From Vicodin] Adverse Reaction (Mild, Verified 09/03/18 16:29) VOMITING tramadol Adverse Reaction (Verified 09/03/18 16:29) Past Medical History - Social History Family history: Reviewed & Not Pertinent Pulmonary Medical History: Reports: Hx Asthma Neurological Medical History: Reports: Hx Migraine, Hx Seizures - due to tramadol Renal/ Medical History: Reports: Hx Ovarian Cysts. Denies: Hx Peritoneal Di alysis Malignancy Medical History: Reports: Hx Cervical Cancer Musculoskeltal Medical History: Denies Hx Arthritis, Reports Hx Musculoskeletal Trauma Skin Medical History: Reports Hx Cellulitis, Reports Hx MRSA Traumatic Medical History: Reports: Hx Fractures - left arm and left foot Infectious Medical History: Reports: Hx MRSA Past Surgical History: Reports: Hx Gynecologic Surgery - cone biopsy,2008, Hx Oral Surgery, Hx Tubal Ligation - Immunizations Immunizations up to date: Yes Hx Diphtheria, Pertussis, Tetanus Vaccination: Yes - 03/31/13 Physical Exam - Vital signs Vitals: Temp Pulse Resp BP Pulse Ox 98.8 F 86 16 140/85 H 99 09/07/18 14:32 09/07/18 14:32 09/07/18 14:32 09/07/18 14:32 09/07/18 14:32 Course - Vital Signs Vital signs: Temp Pulse Resp BP Pulse Ox 98.8 F 86 16 140/85 H 99 09/07/18 14:32 09/07/18 14:32 09/07/18 14:32 09/07/18 14:32 09/07/18 14:32
[2018-09-07] MEDS ORDERED: LIDOCAINE 1% INJ-PF (10 MG/ML) 30 ML SDV INJ ONE (15:28)
[2018-09-07] MEDS ORDERED: OXYCODONE-ACETAMINOPHEN 5-325 MG TABLET PO ONE (15:28)
--- NOTE | 2018-09-07 15:32 | ER Document Report ---
ED General - General Chief Complaint: Skin Problem Stated Complaint: RASH Time Seen by Provider: 09/07/18 14:53 Primary Care Provider: TREY MEYER MD [Primary Care Provider] - Follow up as needed Mode of Arrival: Ambulatory Information source: Patient TRAVEL OUTSIDE OF THE [place] IN LAST 30 DAYS: No - HPI Patient complains to provider of: Abscess back of neck Onset: Last week Onset/Duration: Gradual Quality of pain: Sharp, Stabbing Severity: Severe Associated symptoms: denies: Chills, Fever Exacerbated by: Denies Relieved by: Denies Similar symptoms previously: No Recently seen / treated by doctor: No - Related Data Allergies/Adverse Reactions: Sulfa (Sulfonamide Antibiotics) Allergy (Severe, Verified 09/03/18 16:29) hives, can't breathe hydrocodone bitartrate [From Vicodin] Adverse Reaction (Mild, Verified 09/03/18 16:29) VOMITING tramadol Adverse Reaction (Verified 09/03/18 16:29) Past Medical History - General Information source: Patient - Social History Smoking Status: Current Every Day Smoker Frequency of alcohol use: None Drug Abuse: None Family History: Reviewed & Not Pertinent, Arthritis, CAD, CVA, Hyperlipidemia, Hypertension, Malignancy, Thyroid Disfunction. 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 Denies: Hx Peritoneal Dialysis Malignancy Medical History: Reports: Hx Cervical Cancer Musculoskeletal Medical History: Denies Hx Arthritis, Reports Hx Musculoskeletal Trauma Skin Medical History: Reports Hx Cellulitis, Reports Hx MRSA Traumatic Medical History: Reports: Hx Fractures - left arm and left foot Infectious Medical History: Reports: Hx MRSA Past Surgical History: Reports: Hx Gynecologic Surgery - cone biopsy,2009, Hx Oral Surgery, Hx Tubal Ligation - Immunizations Immunizations up to date: Yes Hx Diphtheria, Pertussis, Tetanus Vaccination: Yes - 03/31/13 Hx Pneumococcal Vaccination: 03/01/13 Review of Systems - Review of Systems Notes: Constitutional: No fevers. No chills. EENT: No eye redness. No eye pain. No ear pain. No sore throat. Cardiovascular: No chest pain. No palpitations. Respiratory: No cough. No shortness of breath. No respiratory distress. Gastrointestinal: No abdominal pain. No nausea, vomiting, or diarrhea. Genitourinary: Atraumatic. No lesions. No pain. No discharge. Musculoskeletal: Atraumatic. No swelling. No deformities. Skin: Positive for abscess back of neck Lymphatic: No swollen lymph nodes. Neurologic: No headache. No syncope. Psychiatric: No suicidal or homicidal ideation. Physical Exam - Vital signs Vitals: Temp Pulse Resp BP Pulse Ox 98.8 F 86 16 140/85 H 99 09/07/18 14:32 09/07/18 14:32 09/07/18 14:32 09/07/18 14:32 09/07/18 14:32 - Notes Notes: General: Well-developed, well-nourished. In no acute distress. Non-toxic appearing. Cardiac: Well-perfused. Regular rate and rhythm. No murmurs, rubs, or gallops. Pulmonary: No respiratory distress. No cyanosis. Bilateral lung fiels are clear to auscultation. Abdominal: Non-distended. Non-rigid. Bowels sounds are present in all four quadrants. No guarding or rebound. HEENT: Head is atraumatic. Conjunctivae not reddened. No tearing. PERRL. EOMI. Orbits atraumatic. No periorbital swelling or erythema. Oropharynx is without erythema, swelling, or exudates. Neck: Supple. No adenopathy. No meningismus. Dermatologic: 3 cm diameter subcu swelling which is fluctuant with a scab on top consistent with abscess. Exquisitely tender locally. No redness or streaking. Minimal cellulitIS. Chest: Atraumatic. No chest wall tenderness to palpation. Musculoskeletal: Moves all extremities well. No range of motion deficits. no muscular or joint tenderness. No paraspinal muscle tenderness. no midline spinal tenderness or step-off. Genitourinary: Examination deferred Neurologic: No gross neurologic deficits. Psychiatric: Normal mood. Course - Vital Signs Vital signs: Temp Pulse Resp BP Pulse Ox 98.8 F 86 16 140/85 H 99 09/07/18 14:32 09/07/18 14:32 09/07/18 14:32 09/07/18 14:32 09/07/18 14:32 Procedures - Incision and Drainage BACK OF NECK ABSCESS Time completed: 17:24 Type: Simple Anesthetic type: 1% Lidocaine mL's of anesthetic: 8 Blade size: 11 I&D procedure: Shurclens applied Incision Method: Incision made by scalpel Amount/type of drainage: MODERATE 5-6 ML PURULENT AND BLOODY DRAINAGE. Notes: 09/07/18 17:25 DSD APPLIED. TOLERATED WELL. Discharge - Discharge Clinical Impression: Abscess of neck Condition: Good Disposition: HOME, SELF-CARE Instructions: Abscess ([facility]), Oral Narcotic Medication ([facility]), Post Incision and Drainage Additional Instructions: I want to recheck your abscess in 24 hours. Please return to emergency department in approximately 24 hours for recheck. To give you your first dose of doxycycline here. Prescriptions: Oxycodone HCl/Acetaminophen [Percocet 5-325 mg Tablet] 1 - 2 tab PO Q6HP PRN #8 tablet PRN Reason: Doxycycline Hyclate 100 mg PO BID #20 capsule Forms: Elevated Blood Pressure Referrals: TREY MEYER MD [Primary Care Provider] - Follow up as needed
[2018-09-07] MEDS ORDERED: ONDANSETRON 4 MG TAB.RAPDIS PO ONE (16:39)
[2018-09-07] MEDS ORDERED: DOXYCYCLINE HYCLATE 100 MG TABLET PO ONE (17:28)
[2018-09-07 18:09] VITALS: BP 119/74
== END 2018-09-07 18:09 | disposition home or self-care (01) ==
LOC: ER 14:21
PROC: 0H94XZZ Drainage of Neck Skin, External Approach (ICD-10-PCS; principal; 2018-09-07)
DX: L02.11 Cutaneous abscess of neck (principal); R21 Rash and other nonspecific skin eruption; F17.200 Nicotine dependence, unspecified, uncomplicated
CPT/HCPCS: 10060; 99283; 87070; 87205; 87075; 87077; 87186; J3490 ×2; S0119

== ENCOUNTER 2018-09-08 17:52 | Emergency (ER) | payer MEDICAID ==
[2018-09-08] MEDS ORDERED: HYDROCODONE/ACETAMINOPHEN 5-325 MG (6 TAB/ER DISP) PO PRN (21:38)
--- NOTE | 2018-09-08 21:43 | ER Document Report ---
ED General - General Chief Complaint: Abscess Recheck Stated Complaint: ABSESS ON BACK OF NECK Time Seen by Provider: 09/08/18 21:23 Primary Care Provider: TREY MEYER MD [Primary Care Provider] - Follow up as needed Information source: Patient TRAVEL OUTSIDE OF THE [place] IN LAST 30 DAYS: No - HPI Patient complains to provider of: Neck abscess Onset: Yesterday Onset/Duration: Constant Quality of pain: No pain Severity: Mild Associated symptoms: Chills, Fever Exacerbated by: Movement Relieved by: Denies Similar symptoms previously: No Recently seen / treated by doctor: No Notes: 32-year-old female coming in for recheck of a neck abscess. I saw her yesterday and incised and drained an abscess on the back of her neck. She started on doxycycline because of a severe anaphylactic reaction to sulfa medications. - Related Data Allergies/Adverse Reactions: Sulfa (Sulfonamide Antibiotics) Allergy (Severe, Verified 09/03/18 16:29) hives, can't breathe hydrocodone bitartrate [From Vicodin] Adverse Reaction (Mild, Verified 09/03/18 16:29) VOMITING tramadol Adverse Reaction (Verified 09/03/18 16:29) Past Medical History - General Information source: Patient - Social History Smoking Status: Current Every Day Smoker Chew tobacco use (# tins/day): No Frequency of alcohol use: None Drug Abuse: None Family History: Reviewed & Not Pertinent, Arthritis, CAD, CVA, Hyperlipidemia, Hypertension, Malignancy, Thyroid Disfunction. 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 Denies: Hx Peritoneal Dialysis Malignancy Medical History: Reports: Hx Cervical Cancer Musculoskeletal Medical History: Denies Hx Arthritis, Reports Hx Musculoskeletal Trauma Skin Medical History: Reports Hx Cellulitis, Reports Hx MRSA Traumatic Medical History: Reports: Hx Fractures - left arm and left foot Infectious Medical History: Reports: Hx MRSA Past Surgical History: Reports: Hx Gynecologic Surgery - cone biopsy,2008, Hx Oral Surgery, Hx Tubal Ligation - Immunizations Immunizations up to date: Yes Hx Diphtheria, Pertussis, Tetanus Vaccination: Yes - 03/31/13 Hx Pneumococcal Vaccination: 03/01/13 Review of Systems - Review of Systems Notes: Constitutional: No fevers. No chills. EENT: No eye redness. No eye pain. No ear pain. No sore throat. Cardiovascular: No chest pain. No palpitations. Respiratory: No cough. No shortness of breath. No respiratory distress. Gastrointestinal: No abdominal pain. No nausea, vomiting, or diarrhea. Genitourinary: Atraumatic. No lesions. No pain. No discharge. Musculoskeletal: Atraumatic. No swelling. No deformities. Skin: Positive for neck abscess Lymphatic: No swollen lymph nodes. Neurologic: No headache. No syncope. Psychiatric: No suicidal or homicidal ideation. Physical Exam - Vital signs Vitals: Temp Pulse Resp BP Pulse Ox 98.1 F 74 14 128/74 H 100 09/08/18 18:00 09/08/18 18:00 09/08/18 18:00 09/08/18 18:00 09/08/18 18:00 - Notes Notes: General: Well-developed, well-nourished. In no acute distress. Non-toxic appearing. Cardiac: Well-perfused. Regular rate and rhythm. No murmurs, rubs, or gallops. Pulmonary: No respiratory distress. No cyanosis. Bilateral lung fiels are clear to auscultation. Abdominal: Non-distended. Non-rigid. Bowels sounds are present in all four quadrants. No guarding or rebound. HEENT: Head is atraumatic. Conjunctivae not reddened. No tearing. PERRL. EOMI. Orbits atraumatic. No periorbital swelling or erythema. Oropharynx is without erythema, swelling, or exudates. Neck: Supple. No adenopathy. No meningismus. Dermatologic: The posterior neck abscess as signs of incision and drainage. There is no iodoform packing in place. The erythema is now localized just to the abscess and there is no cellulitis. This appears to be an interval improvement from yesterday. Chest: Atraumatic. No chest wall tenderness to palpation. Musculoskeletal: Moves all extremities well. No range of motion deficits. no muscular or joint tenderness. No paraspinal muscle tenderness. no midline spinal tenderness or step-off. Genitourinary: Examination deferred Neurologic: No gross neurologic deficits. Psychiatric: Normal mood. Course - Vital Signs Vital signs: Temp Pulse Resp BP Pulse Ox 98.1 F 74 14 128/74 H 100 09/08/18 18:00 09/08/18 18:00 09/08/18 18:00 09/08/18 18:00 09/08/18 18:00 Discharge - Discharge Clinical Impression: Neck abscess Condition: Good Disposition: HOME, SELF-CARE Instructions: Abscess ([facility]), Post Incision and Drainage Additional Instructions: Follow-up in the emergency department in 48 hours for recheck of abscess. Return sooner if symptoms worsen. Referrals: TREY MEYER MD [Primary Care Provider] - Follow up as needed
[2018-09-08 21:54] VITALS: BP 117/87
== END 2018-09-08 21:58 | disposition home or self-care (01) ==
LOC: ER 17:52
DX: L02.11 Cutaneous abscess of neck (principal); Z98.890 Other specified postprocedural states; J45.909 Unspecified asthma, uncomplicated; F17.200 Nicotine dependence, unspecified, uncomplicated; Z85.41 Personal history of malignant neoplasm of cervix uteri; Z88.2 Allergy status to sulfonamides; Z87.892 Personal history of anaphylaxis; Z86.14 Personal history of Methicillin resistant Staphylococcus aureus infection
CPT/HCPCS: 99282

== ENCOUNTER 2019-01-28 17:57 | Emergency (ER) | payer MEDICAID ==
[2019-01-28 18:06] VITALS: BP 142/96
--- NOTE | 2019-01-28 19:38 | ER Document Report ---
Addendum entered and electronically signed by VISHNU RODRIGUEZ PA-C 01/28/19 19:43: Course - Re-evaluation Re-evalutation: 01/28/19 19:43 At its: I am placing her on a short course of ciprofloxacin not doxycycline. - Vital Signs Vital signs: Temp Pulse Resp BP Pulse Ox 98.1 F 86 20 142/96 H 99 01/28/19 18:05 01/28/19 18:05 01/28/19 18:05 01/28/19 18:05 01/28/19 18:05 Original Note: HPI - HPI Patient complains to provider of: R ear pain Time Seen by Provider: 01/28/19 19:16 Pain Level: 5 Context: 33-year-old female presents to the emergency department with acute right ear pain x3 days. She says the pain woke her up in the middle of the night occurred spontaneously. She denies any fevers or chills, states that hurts to open up her jaw but is able to do so, denies any vision changes, denies any altered mental status, denies any postauricular or mastoid tenderness, denies any sore throat, denies any shortness of breath or chest pain, denies any GI symptoms or urinary symptoms. No other complaints. - CONSTITUTIONAL Constitutional: REPORTS: Chills - EENT EENT: REPORTS: Ear Pain - right ear - REPRODUCTIVE Reproductive: DENIES: : Past Medical History - Social History Smoking Status: Current Every Day Smoker Frequency of alcohol use: None Drug Abuse: None Family History: Reviewed & Not Pertinent, Arthritis, CAD, CVA, Hyperlipidemia, Hypertension, Malignancy, Thyroid Disfunction. 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 Denies: Hx Peritoneal Dialysis Malignancy Medical History: Reports: Hx Cervical Cancer Musculoskeletal Medical History: Denies Hx Arthritis, Reports Hx Musculoskeletal Trauma Skin Medical History: Reports Hx Cellulitis, Reports Hx MRSA Traumatic Medical History: Reports: Hx Fractures - left arm and left foot Infectious Medical History: Reports: Hx MRSA Past Surgical History: Reports: Hx Gynecologic Surgery - cone biopsy,2009, Hx Oral Surgery, Hx Tubal Ligation - Immunizations Immunizations up to date: Yes Hx Diphtheria, Pertussis, Tetanus Vaccination: Yes - 03/31/13 Hx Pneumococcal Vaccination: 03/01/13 Vertical Provider Document - CONSTITUTIONAL Notes: PHYSICAL EXAMINATION: Reviewed vital signs and charting by RN GENERAL: Alert, interacts well. No acute distress. HEAD: Normocephalic, atraumatic. EYES: Pupils equal and round. Extraocular movements intact. ENT: Preauricular swelling and tenderness to palpation, tenderness when palpating the tragus and tugging on the right ear, no postauricular tenderness or tenderness over the mastoid process, no evidence of swelling over the region of the parotid gland oral mucosa moist, tongue midline. NECK: Full range of motion. Trachea midline. EXTREMITIES: Moves all 4 extremities spontaneously. No edema, No cyanosis. 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 SKIN: Warm, dry, normal turgor. No rashes or lesions noted. - INFECTION CONTROL TRAVEL OUTSIDE OF THE [place] IN LAST 30 DAYS: No Course - Re-evaluation Re-evalutation: 01/28/19 19:36 Symptoms consistent with otitis externa and possible lymphadenitis. I will give patient Ciprodex drops and also put her on a short course of doxycycline. No evidence of mastoiditis or parotitis at this time. She is stable for discharge. - Vital Signs Vital signs: Temp Pulse Resp BP Pulse Ox 98.1 F 86 20 142/96 H 99 01/28/19 18:05 01/28/19 18:05 01/28/19 18:05 01/28/19 18:05 01/28/19 18:05 Discharge - Discharge Clinical Impression: Preauricular lymphadenopathy Otitis externa Qualifiers: Otitis externa type: unspecified type Chronicity: acute Laterality: right Qualified Code(s): H60.501 - Unspecified acute noninfective otitis externa, right ear Condition: Good Disposition: HOME, SELF-CARE Additional Instructions: Please use the Ciprodex drops as indicated on the bottle. Please take the doxycycline 1 tablet in the morning and 1 tablet in the evening every day for 7 days. As we discussed, if you develop significant swelling, you develop trismus which is the inability to open up your jaw, you develop high fevers, you develop any altered mental status or neurologic changes, or you have any other concerning symptoms please immediately return to the emergency department.
[2019-01-28] MEDS ORDERED: CIPROFLOXACIN HCL/DEXAMETH OTIC DROP 7.5 ML AD ONE (19:40)
[2019-01-28] MEDS ORDERED: OXYCODONE-ACETAMINOPHEN 5-325 MG TABLET PO ONE (19:41)
== END 2019-01-28 20:02 | disposition home or self-care (01) ==
LOC: ER 17:57
DX: H60.501 Unspecified acute noninfective otitis externa, right ear (principal); R59.0 Localized enlarged lymph nodes; H92.01 Otalgia, right ear; F17.200 Nicotine dependence, unspecified, uncomplicated; J45.909 Unspecified asthma, uncomplicated; Z85.41 Personal history of malignant neoplasm of cervix uteri
CPT/HCPCS: 99282; J3490